=== PATIENT | male | born 1935 | race Caucasian/White ===

== ENCOUNTER 2019-08-27 10:58 | Day surgery (SDC) | payer MEDICARE ==
[~2019-08-27] VITALS: Ht 180.3 cm; Wt 78.9 kg
[~2019-08-27 10:58] MED LIST: ASPI-630 PO; DULO30CA2 PO; GABA600T7 PO; HYDROmorphone 2 MG/ML VIAL IV PRN; INSU100V31 SQ; INSU200I4 SQ; IV RINGERS,LACTATED 1000ML 1,000 ML IV SCH; LATA2.5D3 OP; MELO7.5T29 PO; MORPHINE SULFATE 2 MG/ML VIAL. IV PRN; OMEP40CA45 PO; ONDANSETRON PF 4 MG/2 ML VIAL. IV PRN; PROCHLORPERAZINE 10 MG/2 ML VIAL. IV PRN; SIMV20TA18 PO; fentaNYL PF VIAL 100 MCG/2 ML VIAL IV PRN
[2019-08-27 11:43] LABS: CALCIUM 9.5 mg/dL (8.5-10.1); CREATININE 1.1 mg/dL (0.7-1.3); GFR 63.9; POTASSIUM 4.8 mmol/L (3.5-5.1)
[2019-08-27 11:45] LABS: BASO % 0 % (0-3); EOS # 0.3 x10^3/uL (0.0-0.7); EOS % 2 % (0-3); HEMATOCRIT 41.8 % (39.0-53.0); HEMOGLOBIN 13.6 g/dL (13.0-17.5); LYMPH % 17 % (24-48); MEAN CORPUSCULAR HEMOGLOBIN 28 pg (25-35); MEAN CORPUSCULAR HGB CONC 33 g/dL (31-37); MEAN CORPUSCULAR VOLUME 85 fL (79-100); MONO # 1.2 x10^3/uL (0.0-1.1); MONO % 10 % (0-9); NEUT # 8.4 x10^3/uL (1.8-7.7); NEUT % 70 % (31-73); PLATELET COUNT 197 x10^3/uL (140-400); RED BLOOD COUNT 4.93 x10^6/uL (4.30-5.70); RED CELL DISTRIBUTION WIDTH 15.5 % (11.5-14.5); WHITE BLOOD COUNT 11.9 x10^3/uL (4.0-11.0)
[2019-08-27] MEDS: INSULIN LISPRO 100 UNIT/ML 3ML VIAL for OP,RR ONLY. SQ PRN ×2 (11:48→13:15)
[2019-08-27] MEDS ORDERED: IODIXANOL 320 MG/ML 100 ML VIAL. ONE ×2 (12:37→15:31)
[2019-08-27] MEDS ORDERED: LIDOCAINE WITH 8.4% SOD BICARB 3 ML DISP.SYRIN. ONE ×2 (12:37→15:59)
[2019-08-27] MEDS ORDERED: IODIXANOL 320 MG/ML 50ML VIAL. ONE (12:38)
[2019-08-27] MEDS ORDERED: fentaNYL PF VIAL 100 MCG/2 ML VIAL ONE (13:51)
[2019-08-27] MEDS ORDERED: MIDAZOLAM HCL/PF 2 MG/2 ML VIAL. ONE (13:51)
--- NOTE | 2019-08-27 13:51 | NUR ---
pt transferred from outpatient holding to biplane room for procedure. pt monitored per anesthesia
[2019-08-27] MEDS ORDERED: KETAMINE HCL IN NACL, ISO-OSM 50 MG/5 ML SYRINGE ONE (13:52)
[2019-08-27] MEDS ORDERED: HEPARIN for IV BOLUS 10,000 UNIT/10 ML VIAL. ONE ×2 (14:14→14:15)
[2019-08-27 15:56] VITALS: BP 146/74
[2019-08-27] MEDS ORDERED: ceFAZolin 2GM PREMIX 2 GM/50 ML BAG IV ONE (16:00)
[2019-08-27] MEDS ORDERED: LIDOCAINE WITH 8.4% SOD BICARB 3 ML DISP.SYRIN. IJ ONE (16:00)
[2019-08-27] MEDS ORDERED: HEPARIN for IV BOLUS 10,000 UNIT/10 ML VIAL. IV ONE (16:00)
[2019-08-27] MEDS ORDERED: IODIXANOL 320 MG/ML 100 ML VIAL. IART ONE (16:00)
[2019-08-27] MEDS ORDERED: CLOP75TA PO (16:55)
[2019-08-27] MEDS ORDERED: CLOPIDOGREL BISULFATE 75 MG TABLET PO ONE (17:00)
--- NOTE | 2019-08-27 17:07 | PDOC4 ---
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 drug-eluting balloon #5 left anterior tibial artery balloon angioplasty using a 3.0 x 200 mm balloon with 2 overlapping inflations and a 2.5 x 80 balloon for the dorsalis pedis #6 left peroneal artery balloon angioplasty using 2.5 x 80 balloon #7 placement closure device right common femoral artery access site 6 Azerba[place] Angio-Seal with good result #8 amputation of the left second toe not including the metatarsal head Patient did not have previous contrast imaging on the NONI only Surgeon: Roger Martinez M.D. Vascular surgery Anesthesia Type: Mac local Blood Loss: 20 mL Specimans Obtained: Left second toe Findings: Aorta is widely patent without aneurysm or significant occlusive disease, renal arteries pain on single AP view Bilateral common and external iliac arteries widely patent Bilateral common femoral profunda femoral arteries widely patent Left superficial femoral artery is widely patent Left popliteal artery shows about a 60% stenosis over 4 cm improved with directional atherectomy and balloon angioplasty to less than 10% residual stenosis no dissection or complication Left anterior tibial artery is long segment occluded shorty after it's origin and reconstitutes at the ankle -- after balloon angioplasty of the anterior tibial/dorsalis pedis give in-line flow to the foot Left TP trunk is patent, the proximal peroneal is occluded and reconstitutes mid calf with good flow to the ankle, after balloon angioplasty left peroneal gives excellent in-line flow to the ankle Left posterior tibial artery is totally occluded at its origin and reconstitutes via collaterals at the very distal ankle Retrograde access at the foot for the left dorsalis pedis was necessary for recanalization Access point amputation left second toe not including metatarsal head with pulsatile bleeding from the wound and primary closure using deep Vicryl sutures and nylon sutures Complications: None Operative Note: Patient was escorted to the hypertropic suite and placed supine on the table. Sedation was induced by anesthesia with appropriate monitoring devices in place. The groins and left foot were prepped and draped in usual sterile fashion. Appropriate timeout was performed. Attention was directed the right common femoral artery which was fluoroscopically marked over the femoral head and examined with ultrasound. The vessels found to be widely patent with good flow and an image of the vessels taken and saved for the medical record. Under real-time ultrasound guidance local anesthetic was injected in the right groin and the right common femoral artery was accessed over the femoral head using a marked puncture needle. This was used to introduce a marked puncture wire into the iliac artery under fluoroscopic guidance and exchanged the marked puncture needle for a marked puncture sheath which backbled easily. This is used to introduce a Hogue wire to the aorta under fluoroscopic guidance and exchanged the marked puncture sheath for a 5 [place] Fairton sheath which was aspirated and flushed without difficulty. These resistance gooseflesh catheter suprarenal abdominal aorta and aortogram was obtained. Catheter was pulled back to her bifurcation and oblique pelvic angina grams were obtained. I then used the catheter. Bifurcation and passed a Glidewire into the left superficial femoral artery and then passed the catheter to the left common femoral artery. Left leg runoff to the foot was obtained which showed a significant popliteal stenosis and three-vessel tibial complete occlusion. Given the fact the patient has ulcers and osteomyelitis in his left foot revascularization was necessary for limb salvage. We decided to intervene. Patient was given intravenous heparin and I used the catheter to pass a supra core wire into the left popliteal artery under fluoroscopic guidance. The catheter was removed and this wire was used to exchange the 5 Azerbaijani sheath for a 6 Azerbaijani 90 cm Terumo destination sheath passed up and over the aortic bifurcation with the distal tip of the left popliteal artery. I used this sheath to introduce 135 cm angled 4 Azerba[place] Terumo León-cross catheter and a V18 wire to select the urgent anterior tibial artery. I used this wire and catheter to cross most of the TAYLOR occlusion but I was unable to reenter the true lumen distally. After multiple attempts with a couple wires and different catheter I decided to proceed with pedal access to join wires and successfully revascularize the foot. Attention was directed to the left ankle/proximal foot where ultrasound was used to examine the distal anterior tibial artery/proximal dorsalis pedis artery. This vessels found to be widely patent with good flow and a good lumen. An image of the vessels taken and saved for the medical record. Under real-time ultrasound guidance the vessel was accessed in retrograde fashion using a marked puncture needle and I was easily able to pass a micropuncture wire into the anterior tibial artery and retrograde fashion and this was confirmed under fluoroscopy. The Seldinger technique was used to exchange the needle for a Cook pedal access sheath which was aspirated and flushed without difficulty. I used this sheath to introduce a 0.014 Glidewire advantage retrograde into the anterior tibial artery. I was able to cross 2 wires 1 from each direction and then advance the Navicross catheter into the mid anterior tibial artery and was able to view a window where the retrograde wire deflected the catheter when passing the wire. I advanced the catheter tip to this region was able to pass the retrograde 0.014 Glidewire advantage into the lumen of the 4 Azerbaijani 0.035 catheter within the lumen of the occluded anterior tibial artery. I used this to bring the wire out the right groin therefore a body flossing the patient with the 0.014 Glidewire advantage on the right groin to the left foot. At this in place I was able to pass a hawk 1 M angiography showed a good result from this we treated the area with a 5 x 60 Adm. drug-eluting balloon with good results. I then I treated entire length anterior tibial artery with a 3.0 x 200 antroplasty balloon with 2 overlapping inflations and excellent results. There w as still some residual stenosis at the ankle and so I used a 2.5 x 80 balloon and passed this past the area stenosis up to the tip of the sheath. I then removed the wire and passed the soft and the wire through the balloon catheter out into the foot past the pedal access sheath. The pedal access sheath was removed and I advanced the balloon past the access site and inflated the balloon for 5 minutes. Repeat angiography showed excellent flow to the foot with no residual stenosis and sealing of the access site with no extravasation or stenosis. The balloon and wire were pulled back to the popliteal artery and then a redirected these down the tibioperoneal trunk. With the balloon as a support catheter I was able to use the 0.014 Glidewire advantage to cross the proximal complete occlusion of the peroneal artery and reenter the true lumen distally. I used the balloon to perform antroplasty the proximal peroneal artery with good results. Completion angiography showed the popliteal widely patent with peroneal artery giving good flow to the ankle and the anterior tibial artery giving good flow to the foot. The wires and catheters were removed and the sheath was pulled back and removed over a Hogue wire. The Hogue wire was used to introduce the 6 Azerbaijani Angio-Seal sheath and the Angio-Seal device was deployed at the right femoral access site with excellent hemostasis. Attention was then directed to the left foot where local anesthetic was injected around the base of the left second toe which had open ulcerations and osteomyelitis. A #15 blade was used to make a fishmouth type incision at the base of the left second toe and Bovie cautery was used to extend this down. There was actually pulsatile bleeding within the wound bed. The joint capsule was identified and the MTP joint was divided and the toe passed off as a specimen. Bovie cautery and deep interrupted 3-0 Vicryl sutures were used to gain hemostasis and close the deep layers of the wound. The skin was then closed with a series of interrupted vertical mattress sutures using 3-0 nylon. The foot was cleaned and dried and sterile dressings were placed over the foot incision. An excellent dorsalis pedis signal was confirmed at the ankle using hand-held cancer Doppler. The access site was again examined and found to have excellent hemostasis. Patient was escorted to recovery in stable condition he was loaded with oral Plavix 300 mg. There were no complications and the patient tolerated the procedure well throughout. Blood loss was minimal. Patient will be discharged home today and follow up in 2-3 weeks. He was given a prescription for Plavix REMY MARTINEZ MD Aug 27, 2019 17:07
[2019-08-27 18:15] VITALS: BP 132/66
--- NOTE | 2019-09-02 09:07 | PATHOLOGY ---
[facility] Accession Number: [id number] . 01 Material submitted: . toe - LEFT SECOND TOE AMPUTATION. Modifiers: left, second . 01 Clinical history: . Atherosclerosis left leg with foot ulceration. . 02 Diagnosis: Left second toe amputation: - Foci of ulceration of skin of distal and proximal toe, with underlying acute cellulitis, focal acute inflammation of joint space, and focal acute and chronic osteomyelitis. - Proximal amputation margin viable with no evidence of acute cellulitis or osteomyelitis. . (JPM:[facility] 09/01/2019) QTP 09/02/2019 0831 Local . 02 Comment: . . . . 02 Electronically signed: . Jose Angel Juarez MD, Pathologist NPI- [id number] . 01 Gross description: . Received in formalin labeled "Colt Arredondo, left second toe amputation" is a 4.6 x 2.4 x 2.2 cm toe amputation specimen. The proximal bone margin is slightly roughened and consistent with a surgical margin. The proximal skin and soft tissue margins are smooth and grossly viable. The distal aspect of the toe has an ulcerated dillard-brown lesion at the nail bed area measuring 1.6 x 1.3 x 0.1 cm. The nail is not grossly identified. Proximal to the lesion is a separate 1.2 x 1.1 x 0.2 cm lesion. This lesion is located 1.6 cm from the first lesion and 1.2 cm from the skin and soft tissue margin. The lesion is located 2.1 cm from the bone margin. The resection margin is inked entirely black. A direct marketing representative cross-section of the specimen is submitted in cassettes A1-A2 following decalcification. [place] [place] SYC/C 08/28/2019 1834 Local . 02 Pathologist provided ICD-10: L97.529, L03.032 . 02 CPT . 956260, 625371 Specimen Comment: A courtesy copy of this report has been sent to [phone], [phone]- Specimen Comment: [id number] Specimen Comment: Report sent to / DR WINCHESTER Performed at: 01 [facility] [address], [place], [place] [id number] MD Crow Hogue MD Phone: [phone] Performed at: 02 [facility] [address] [place], [place] [id number] MD Jose Angel Juarez MD Phone: [phone]
== END 2019-08-27 18:36 | disposition home or self-care (01) ==
LOC: SURG 10:58 → EDSTATUS 13:00 → SURG 18:36
PROVIDERS: ATTEND Surgery Vascular Surgery
DX: I70.245 Atherosclerosis of native arteries of left leg with ulceration of other part of foot (principal); M86.8X7 Other osteomyelitis, ankle and foot; E11.69 Type 2 diabetes mellitus with other specified complication; L97.529 Non-pressure chronic ulcer of other part of left foot with unspecified severity; E78.00 Pure hypercholesterolemia, unspecified; K21.9 Gastro-esophageal reflux disease without esophagitis; E11.42 Type 2 diabetes mellitus with diabetic polyneuropathy; Z79.899 Other long term (current) drug therapy; Z86.73 Personal history of transient ischemic attack (TIA), and cerebral infarction without residual deficits; Z79.84 Long term (current) use of oral hypoglycemic drugs
CPT/HCPCS: 28820; 36415; 37225; 37228; 37232; 75625; 75710; 76937; 80048; 82962; 85025; 88305; 88311; C1713; C1724; C1725; C1760; C1769; C1892; C1894; C2623; J0696; J1644; J2250; J3010; Q9967; G0269